=== PATIENT | female | born 1935 | race Caucasian/White ===

== ENCOUNTER 2017-12-11 09:38 | Inpatient (IN) | payer MEDICARE, OTHER ==
[~2017-12-11] VITALS: Ht 165.1 cm; Wt 66.6 kg
[2017-12-11] MEDS ORDERED: MORPHINE SULFATE 4 MG/ML, 1ML IVPush PRN (10:00)
[2017-12-11] MEDS ORDERED: ONDANSETRON ODT 4 MG PO ONE (10:00)
[2017-12-11] MEDS ORDERED: ONDANSETRON ODT 4 MG ONE (10:01)
[2017-12-11] MEDS ORDERED: MORPHINE SULFATE 4 MG/ML, 1ML ONE (10:01)
[2017-12-11] MEDS ORDERED: PLEASE ENTER ALLERGIES MC SCH (10:30)
[2017-12-11] MEDS ORDERED: PLEASE ENTER HEIGHT AND WEIGHT MC SCH (10:30)
[2017-12-11] MEDS ORDERED: IBUPROFEN 200 MG TABLET ONE (12:30)
[2017-12-11] MEDS ORDERED: LEVO88TA4 PO (12:59)
[2017-12-11] MEDS ORDERED: LEVO75TA PO (12:59)
[2017-12-11] MEDS ORDERED: PROP20TA PO (12:59)
[2017-12-11] MEDS ORDERED: ENALAPRILAT 1.25 MG/ML, 2ML IVPush PRN (13:00)
[2017-12-11] MEDS ORDERED: HYDR12.58 PO (13:00)
[2017-12-11] MEDS ORDERED: SODIUM CHLORIDE FLUSH 10ML SYR IVF PRN (13:00)
[2017-12-11] MEDS ORDERED: ONDANSETRON 2MG/ML, 2ML IVPush PRN (13:00)
[2017-12-11] MEDS ORDERED: POLYETHYLENE GLYCOL 17 GM PACKET PO PRN (13:00)
[2017-12-11] MEDS ORDERED: ONDANSETRON ODT 4 MG PO PRN (13:00)
[2017-12-11] MEDS ORDERED: TRAV5DRO OP (13:00)
[2017-12-11 13:16] LABS: BASOPHILS # (AUTO) 0.07 x10^3/uL (0-0.1); BASOPHILS % (AUTO) 1 % (0-1); EOSINOPHILS # (AUTO) 0.09 x10^3/uL (0-0.4); EOSINOPHILS % (AUTO) 1 % (1-7); LYMPHOCYTES # (AUTO) 1.38 x10^3/uL (1-3.4); LYMPHOCYTES % (AUTO) 11 % (22-44); MD NO; MEAN CORPUSCULAR HGB CONC 33.2 g/dL (32.4-35.8); MEAN CORPUSCULAR VOLUME 90.4 fL (80-100); MEAN PLATELET VOLUME 7.5 fL (7.4-10.4); MONOCYTES # (AUTO) 0.83 x10^3/uL (0.2-0.8); MONOCYTES % (AUTO) 6 % (2-9); NEUTROPHILS % (AUTO) 82 % (42-75); PLATELET COUNT 309 x10^3/uL (130-400); RED BLOOD COUNT 4.95 x10^6/uL (3.82-5.3); RED CELL DISTRIBUTION WIDTH 13.9 % (9.6-15.2)
[2017-12-11 14:16] VITALS: BP 162/72
[2017-12-11] MEDS: ENOXAPARIN 40 MG/0.4 ML SQ SCH (14:36)
[2017-12-11] MEDS ORDERED: morphine SULFATE 10 MG/ML, 1ML IVPush PRN (15:30)
[2017-12-11] MEDS ORDERED: PROPRANOLOL 20 MG TABLET PO SCH (16:00)
[2017-12-11 18:44] VITALS: BP 176/74
[2017-12-11] MEDS: hydrALAzine 20 MG/ML, 1ML IVPush PRN (19:14)
[2017-12-11] MEDS: TRAVOPROST OPHTH 0.004%, 2.5ML OP SCH (22:22)
[2017-12-11] MEDS: PROPRANOLOL 20 MG TABLET PO PRN (22:23)
[2017-12-11 22:32] VITALS: BP 147/67
[2017-12-11] MEDS: ACETAMINOPHEN 325 MG TABLET PO PRN (23:42)
[2017-12-12 02:01] VITALS: BP 123/64
[2017-12-12] MEDS: ACETAMINOPHEN 325 MG TABLET PO PRN ×2 (03:28→09:01)
[2017-12-12 05:36] LABS: CHLORIDE 104 mmol/L (98-107)
[2017-12-12 05:48] LABS: ALANINE AMINOTRANSFERASE 20 U/L (12-78); ALBUMIN 3.2 g/dL (3.4-5.0); ALKALINE PHOSPHATASE 63 U/L (45-117); ANION GAP 9 mmol/L (5-15); CALCIUM 8.5 mg/dL (8.5-10.1); CREATININE 1.08 mg/dL (0.55-1.02); TOTAL PROTEIN 6.8 g/dL (6.4-8.2)
[2017-12-12] MEDS ORDERED: LEVOTHYROXINE 75 MCG TABLET ONE (07:07)
[2017-12-12 07:30] VITALS: BP 127/67
[2017-12-12] MEDS ORDERED: LEVOTHYROXINE 88 MCG TABLET PO SCH (09:00)
[2017-12-12] MEDS: HYDROCHLOROTHIAZIDE 12.5 MG CAPSULE PO SCH (09:00)
[2017-12-12] MEDS: SENNA/DOCUSATE TABLET PO SCH (09:00)
[2017-12-12 14:00] VITALS: BP 146/67
[2017-12-12] MEDS: PROPRANOLOL 20 MG TABLET PO PRN (14:22)
[2017-12-12] MEDS: ENOXAPARIN 40 MG/0.4 ML SQ SCH (14:22)
[2017-12-12 17:22] VITALS: BP 187/66
[2017-12-12] MEDS: hydrALAzine 20 MG/ML, 1ML IVPush PRN (17:23)
[2017-12-12 17:35] VITALS: BP 151/66
[2017-12-12] MEDS ORDERED: OMEPRAZOLE 10 MG CAPSULE.DR PO ONE (18:00)
[2017-12-12] MEDS ORDERED: CALCIUM CARBONATE 500 MG TAB.CHEW PO PRN (18:00)
[2017-12-12 19:54] VITALS: BP 133/58
[2017-12-12] MEDS: TRAVOPROST OPHTH 0.004%, 2.5ML OP SCH ×2 (20:47→22:16)
[2017-12-13 01:23] VITALS: BP 135/63
[2017-12-13] MEDS ORDERED: LEVOTHYROXINE 88 MCG TABLET PO SCH (06:00)
[2017-12-13 08:00] VITALS: BP 130/56
[2017-12-13] MEDS ORDERED: LEVOTHYROXINE 75 MCG TABLET PO SCH (09:00)
[2017-12-13] MEDS: HYDROCHLOROTHIAZIDE 12.5 MG CAPSULE PO SCH (09:29)
[2017-12-13] MEDS: PROPRANOLOL 20 MG TABLET PO PRN ×3 (09:39→22:41)
[2017-12-13] MEDS: SENNA/DOCUSATE TABLET PO SCH (10:44)
[2017-12-13] MEDS: ACETAMINOPHEN 500 MG TABLET PO SCH ×3 (12:06→20:15)
[2017-12-13 14:30] VITALS: BP 152/68
[2017-12-13] MEDS: ENOXAPARIN 40 MG/0.4 ML SQ SCH (16:26)
[2017-12-13 21:22] VITALS: BP 148/61
[2017-12-13] MEDS: TRAVOPROST OPHTH 0.004%, 2.5ML OP SCH (22:42)
[2017-12-14 02:29] VITALS: BP 146/56
[2017-12-14] MEDS: ACETAMINOPHEN 500 MG TABLET PO SCH ×3 (05:15→16:16)
[2017-12-14] MEDS ORDERED: LEVOTHYROXINE 75 MCG TABLET PO SCH (06:00)
[2017-12-14 07:43] VITALS: BP 136/62
[2017-12-14] MEDS: SENNA/DOCUSATE TABLET PO SCH (09:00)
[2017-12-14] MEDS: HYDROCHLOROTHIAZIDE 12.5 MG CAPSULE PO SCH (09:23)
[2017-12-14] MEDS: PROPRANOLOL 20 MG TABLET PO PRN ×2 (09:29→16:16)
[2017-12-14] MEDS ORDERED: PNEUMOCOCCAL 23 VACCINE IM-VACC ONE (12:00)
[2017-12-14] MEDS ORDERED: ACET500T71 PO (14:20)
[2017-12-14] MEDS ORDERED: IBUP-1222 PO (14:21)
[2017-12-14 15:42] VITALS: BP 157/73
[2017-12-14] MEDS: ENOXAPARIN 40 MG/0.4 ML SQ SCH (16:00)
== END 2017-12-14 17:00 | DRG 563 ==
LOC: ED 10:38 → EDIP 12:32 → 4NOR 13:43
PROVIDERS: ADMIT Family Medicine; ATTEND Family Medicine
DX: S82.141A Displaced bicondylar fracture of right tibia, initial encounter for closed fracture (principal); E44.1 Mild protein-calorie malnutrition; D72.829 Elevated white blood cell count, unspecified; W10.8XXA Fall (on) (from) other stairs and steps, initial encounter; Z96.641 Presence of right artificial hip joint; M25.469 Effusion, unspecified knee; R00.2 Palpitations; Z68.24 Body mass index [BMI] 24.0-24.9, adult; E03.9 Hypothyroidism, unspecified; I10 Essential (primary) hypertension; Z80.3 Family history of malignant neoplasm of breast; Z90.710 Acquired absence of both cervix and uterus; Z88.5 Allergy status to narcotic agent; Z72.89 Other problems related to lifestyle; Y93.89 Activity, other specified; Y92.89 Other specified places as the place of occurrence of the external cause; Y99.8 Other external cause status; Z23 Encounter for immunization
CPT/HCPCS: 36415; 80053; 85025; 90732; J1650; Q0162; J0360

== ENCOUNTER 2018-09-01 07:30 | Inpatient (IN) | payer MEDICARE, OTHER ==
[~2018-09-01] VITALS: Ht 165.1 cm; Wt 61.9 kg
[~2018-09-01 07:30] MED LIST: ACET500T71 PO; HYDROCHLOROTH12.5 MG PO; IBUP-1222 PO; LEVO75TA PO; LEVO88TA4 PO; PROP20TA PO; TRAV5DRO EACHEYE
[2018-10-17] MEDS ORDERED: IBUP200T64 PO (13:55)
[2018-10-17] MEDS ORDERED: ASPI-650 PO (13:55)
[2018-11-03] MEDS ORDERED: LACTATED RINGERS 1,000 ML IV SCH ×2 (06:07→06:46)
[2018-11-03 06:13] VITALS: BP 198/80
[2018-11-03] MEDS ORDERED: VANCOMYCIN 1,000 MG ONE (06:27)
[2018-11-03] MEDS ORDERED: ROPIvacaine/PF 0.5%, 30 ML ONE ×2 (06:27→08:33)
[2018-11-03] MEDS ORDERED: TRANEXAMIC ACID 100 MG/ML, 10ML ONE (06:27)
[2018-11-03] MEDS ORDERED: KETOROLAC 60 MG/2 ML ONE (06:27)
[2018-11-03] MEDS ORDERED: EPINEPHRINE 1 MG/ML, 1ML ONE (06:28)
[2018-11-03] MEDS ORDERED: SODIUM CHLORIDE 0.9% 50 ML ONE (06:28)
[2018-11-03] MEDS ORDERED: GABAPENTIN 300 MG CAPSULE PO ONE (06:30)
[2018-11-03] MEDS ORDERED: ACETAMINOPHEN 650 MG/20.3 ML UDC PO PRN (06:30)
[2018-11-03] MEDS ORDERED: ONDANSETRON 4 MG TABLET PO PRN (06:30)
[2018-11-03] MEDS ORDERED: ZOLPIDEM 5MG TABLET PO PRN (06:30)
[2018-11-03] MEDS ORDERED: SENNA/DOCUSATE TABLET PO PRN (06:30)
[2018-11-03] MEDS ORDERED: SCOPOLAMINE PATCH, 1.5MG PATCH.TD72 TD ONE (06:30)
[2018-11-03] MEDS ORDERED: HYDROcodone/APAP 5/325 TABLET PO PRN (06:30)
[2018-11-03] MEDS ORDERED: ACETAMINOPHEN 500 MG TABLET PO ONE (06:30)
[2018-11-03] MEDS ORDERED: MAGNESIUM HYDROXIDE 8%, 30ML UDC PO PRN (06:30)
[2018-11-03] MEDS ORDERED: BISACODYL 10 MG SUPP PR PRN (06:30)
[2018-11-03] MEDS ORDERED: DIPHENHYDRAMINE 50 MG CAPSULE PO PRN (06:30)
[2018-11-03] MEDS ORDERED: MIDAZOLAM 1 MG/ML, 2ML ONE (06:33)
[2018-11-03] MEDS ORDERED: FENTANYL PF 100 MCG/2ML ONE (06:34)
[2018-11-03] MEDS ORDERED: PROPOFOL 10 MG/ML, 20ML ONE (06:50)
[2018-11-03] MEDS ORDERED: DEXAMETHASONE 4 MG/ML, 1ML ONE (06:50)
[2018-11-03] MEDS ORDERED: GLYCOPYRROLATE 0.2MG/1ML, 5ML ONE (06:50)
[2018-11-03] MEDS ORDERED: ONDANSETRON 2MG/ML, 2ML ONE ×2 (06:50→08:29)
[2018-11-03] MEDS ORDERED: NEOSTIGMINE 1 MG/ML, 10ML ONE (06:50)
[2018-11-03] MEDS ORDERED: hydrALAzine 20 MG/ML, 1ML ONE (06:50)
[2018-11-03] MEDS ORDERED: CEFAZOLIN 1,000 MG ONE (06:50)
[2018-11-03] MEDS ORDERED: SUCCINYLCHOLINE 20 MG/ML, 10ML ONE (06:50)
[2018-11-03] MEDS ORDERED: ROCURONIUM 10 MG/ML,10ML ONE (06:50)
[2018-11-03] MEDS ORDERED: ROPIvacaine/PF 0.5%, 30 ML INFIL ONE (07:07)
[2018-11-03] MEDS ORDERED: METOCLOPRAMIDE 5 MG/ML, 2ML IV PRN (07:30)
[2018-11-03] MEDS ORDERED: OXYcodone 5 MG/5 ML ORAL.SOL UDC PO PRN (07:30)
[2018-11-03] MEDS ORDERED: LABETALOL 5MG/ML, 20ML IV PRN (07:30)
[2018-11-03] MEDS ORDERED: MORPHINE SULFATE 4 MG/ML, 1ML IVPush PRN (07:30)
[2018-11-03] MEDS ORDERED: MEPERIDINE/PF 25MG/0.5ML IVPush PRN (07:30)
[2018-11-03] MEDS ORDERED: FENTANYL PF 100 MCG/2ML IV PRN (07:30)
[2018-11-03] MEDS ORDERED: hydrALAzine 20 MG/ML, 1ML IV PRN (07:30)
[2018-11-03] MEDS ORDERED: OXYcodone 5 MG/5 ML ORAL.SOL UDC ONE (08:25)
[2018-11-03] MEDS ORDERED: TRANEXAMIC ACID 1,000 MG in SODIUM CHLORIDE 0.9% 100 ML IV ONE (08:30)
[2018-11-03] MEDS: ONDANSETRON 2MG/ML, 2ML IV PRN ×2 (08:32→17:53)
[2018-11-03] MEDS ORDERED: LEVOTHYROXINE 75 MCG TABLET PO SCH (09:00)
[2018-11-03] MEDS: DOCUSATE 100 MG CAPSULE PO SCH ×2 (09:00→21:01)
[2018-11-03] MEDS: HYDROCHLOROTHIAZIDE 12.5 MG CAPSULE PO SCH ×2 (09:00→19:30)
[2018-11-03] MEDS: PROPRANOLOL 20 MG TABLET PO SCH ×3 (09:00→21:01)
[2018-11-03] MEDS: NS + 20MEQ KCL 1,000 ML IV SCH ×2 (10:17→22:56)
[2018-11-03 13:30] VITALS: BP 123/43
[2018-11-03] MEDS: CEFAZOLIN PMX 2GM/50ML 50 ML IVPB SCH ×2 (15:29→22:56)
[2018-11-03] MEDS: OXYcodone IR 5MG TABLET PO PRN ×3 (15:29→22:07)
[2018-11-03] MEDS: ASPIRIN 81 MG TABLET EC PO SCH (17:03)
[2018-11-03 19:33] VITALS: BP 149/61
[2018-11-03] MEDS ORDERED: TRAVOPROST OPHTH 0.004%, 2.5ML EACHEYE SCH (21:00)
[2018-11-03] MEDS ORDERED: CYCLOBENZAPRINE 10 MG TABLET PO PRN (22:30)
[2018-11-04 00:20] VITALS: BP 127/58
[2018-11-04] MEDS: OXYcodone IR 5MG TABLET PO PRN ×3 (03:15→10:33)
[2018-11-04 04:30] VITALS: BP 114/62
[2018-11-04] MEDS: ASPIRIN 81 MG TABLET EC PO SCH (05:56)
[2018-11-04] MEDS: LEVOTHYROXINE 88 MCG TABLET PO SCH ×2 (05:57→10:02)
[2018-11-04] MEDS ORDERED: DEXAMETHASONE 4 MG/ML, 1ML IVPush SCH (06:00)
[2018-11-04] MEDS ORDERED: TAMSULOSIN 0.4 MG CAP.ER.24H PO ONE (08:00)
[2018-11-04 08:14] VITALS: BP 149/56
[2018-11-04] MEDS ORDERED: OXYC5CAP2 PO (08:58)
[2018-11-04] MEDS ORDERED: TRAM50TA2 PO (09:02)
[2018-11-04] MEDS ORDERED: MELO7.5T31 PO (09:02)
[2018-11-04] MEDS ORDERED: ASPI81TA45 PO (09:04)
[2018-11-04] MEDS: DOCUSATE 100 MG CAPSULE PO SCH (10:08)
[2018-11-04] MEDS: HYDROCHLOROTHIAZIDE 12.5 MG CAPSULE PO SCH (10:08)
[2018-11-04] MEDS: PROPRANOLOL 20 MG TABLET PO SCH (10:12)
== END 2018-11-04 12:00 | disposition home or self-care (01) | DRG 470 ==
LOC: ORIP 11-03 05:36 → 4NOR 11-03 09:15 → DCLOUNGE 11-04 11:40
PROVIDERS: ADMIT Orthopaedic Surgery; ATTEND Orthopaedic Surgery
PROC: 0SRB06A Replacement of Left Hip Joint with Oxidized Zirconium on Polyethylene Synthetic Substitute, Uncemented, Open Approach (ICD-10-PCS; principal; 2018-11-03 07:00)
DX: M16.12 Unilateral primary osteoarthritis, left hip (principal); I10 Essential (primary) hypertension; E03.9 Hypothyroidism, unspecified; Z88.6 Allergy status to analgesic agent; Z90.710 Acquired absence of both cervix and uterus; Z90.89 Acquired absence of other organs; Z82.61 Family history of arthritis
CPT/HCPCS: 36415; 72170; 76000; 85014; 85018; C1713; G0378; J0171; J0690; J1100; J1885; J2250; J2405; J2704; J2710; J2795; J3010; J3370; J3480; J3490; C1776; J0330; J0360; J7120

== ENCOUNTER → 2018-10-17 | Outpatient (CLI) | payer MEDICARE, OTHER ==
[~2018-10-17] MED LIST changes: +ASPI-650 PO; +IBUP200T64 PO
[2018-10-17 14:30] LABS: BASOPHILS # (AUTO) 0.05 x10^3/uL (0-0.1); BASOPHILS % (AUTO) 1 % (0-1); EOSINOPHILS # (AUTO) 0.35 x10^3/uL (0-0.4); EOSINOPHILS % (AUTO) 3 % (1-7); LYMPHOCYTES # (AUTO) 1.59 x10^3/uL (1-3.4); LYMPHOCYTES % (AUTO) 16 % (22-44); MD NO; MEAN CORPUSCULAR HEMOGLOBIN 29.8 pg (27.0-34.8); MEAN CORPUSCULAR HGB CONC 32.6 g/dL (32.4-35.8); MEAN CORPUSCULAR VOLUME 91.3 fL (80-100); MEAN PLATELET VOLUME 7.9 fL (7.4-10.4); MONOCYTES # (AUTO) 1.02 x10^3/uL (0.2-0.8); MONOCYTES % (AUTO) 10 % (2-9); NEUTROPHILS # (AUTO) 7.19 x10^3/uL (1.8-6.8); NEUTROPHILS % (AUTO) 71 % (42-75); PLATELET COUNT 315 x10^3/uL (130-400); RED BLOOD COUNT 4.36 x10^6/uL (3.82-5.3); RED CELL DISTRIBUTION WIDTH 13.8 % (9.6-15.2)
[2018-10-17 14:43] LABS: ALANINE AMINOTRANSFERASE 20 U/L (12-78); ALBUMIN 3.8 g/dL (3.4-5.0); ANION GAP 7 mmol/L (5-15); CALCIUM 8.9 mg/dL (8.5-10.1); CHLORIDE 105 mmol/L (98-107); CREATININE 1.08 mg/dL (0.55-1.02)
[2018-10-17 14:45] LABS: ALKALINE PHOSPHATASE 101 U/L (45-117); BILIRUBIN,TOTAL 0.6 mg/dL (0.2-1.0); TOTAL PROTEIN 7.7 g/dL (6.4-8.2)
[2018-10-17 14:53] LABS: HEMOGLOBIN A1C 5.9 % (4.2-6.3)
[2018-10-17 15:04] LABS: INTERNATIONAL NORMALIZED RATIO 1.01 (0.93-1.1); PROTHROMBIN TIME 10.6 Seconds (9.6-11.5)
== END | disposition home or self-care (01) ==
LOC: STAR 12:57
PROVIDERS: ATTEND Orthopaedic Surgery
DX: Z01.818 Encounter for other preprocedural examination (principal); M16.12 Unilateral primary osteoarthritis, left hip
CPT/HCPCS: 36415; 80053; 83036; 85025; 85610; 85730; 87081; 93005